=== PATIENT | female | born 1990 | race Caucasian/White ===

== ENCOUNTER 2019-02-26 16:53 | Emergency (ER) | payer MEDICAID, OTHER ==
[~2019-02-26] VITALS: Ht 152.4 cm; Wt 60.3 kg
[2019-02-26 17:10] VITALS: BP 103/51; PULSE 71; RESP 18; Ht 152.4 cm; Wt 60.3 kg
--- NOTE | 2019-02-26 17:44 | ERD ---
ER Documentation Chief Complaint Chief Complaint Sent by PCP for possible demise. HPI 28-year-old female is 12 weeks . She was seen at her OB today and they were unable to detect a heart rate on ultrasound patient's doctor sent her here to the ER. Patient has past medical history of ectopic and she had a UTI during this at her fifth week gestation. Patient denies any abdominal pain bleeding or vaginal discharge. ROS All systems reviewed and are negative except as per history of present illness. Allergies Allergies: Coded Allergies: No Known Allergy (Unverified , 02/26/19) FmHx Family History: No diabetes, No coronary disease, No other Physical Exam Vitals Vital Signs Date Temp Pulse Resp B/P (MAP) Pulse Ox O2 O2 Flow FiO2 Time Delivery Rate 02/26/19 99.2 71 18 103/51 98 17:10 (68) Physical Exam GENERAL: The patient is well-appearing, well-nourished, in no acute distress CHEST: Clear to auscultation bilaterally. There are no rales, wheezes or rhonchi. HEART: Regular rate and rhythm. No murmurs, clicks, rubs or gallops. ABDOMEN:Soft, nontender and nondistended. Good bowel sounds. No rebound or guarding. No gross peritonitis. No gross organomegaly or masses. No Cool sign or McBurney point tenderness. BACK: No midline or flank tenderness. Procedures/MDM ED course: Physical exam Trans-vaginal ultrasound Transabdominal ultrasound The patient was stable throughout the ED course. The patient and/or family informed of laboratory and diagnostic imaging results throughout the ED course. Diagnostic imaging: Read by radiologist Romy White, PROCEDURE: US OB. CLINICAL INDICATION: . No heart tones detected in the Clinic. LAST MENSTRUAL PERIOD: 11/24/2018 TECHNIQUE: Transabdominal and transvaginal views of the pelvis are available for review. COMPARISON: No prior studies are available for comparison. FINDINGS: [place]-rump length: 3.1 cm heart rate: No heart tones detected Ultrasound estimated gestational age: 10 weeks and 0 days Round myometrial lesions measuring 2.8 cm and 1.5 cm consistent with fibroids. Ovaries were not visualized. There is no free fluid. IMPRESSION: Approximately 10-week gestation without heart tones detected consistent with intrauterine demise. Medical decision making: Patient 28-year-old female presenting to the ED for confirmation for demise. Patient was seen at her [facility] today and they were unable to exact tones on ultrasound patient was sent here by her [facility] Dr. Talon Neff. The patient vitals were in normal range. The patient denies any vaginal bleeding or abdominal pain. Physical exam was unremarkable. Patient's ultrasound was consistent with a found in the OB office. heart tones were not detected. The patient remains hemodynamically stable. The patient was advised that if she experiences bleeding pain discharge dizziness lightheadedness or any discomfort to come back immediately. Patient was advised that she needs to contact her [facility] tomorrow and discuss the findings consistent with a nonviable . An attempt was made by myself to contact Dr. Neff but was unsuccessful. At this time the patient remains hemodynamically stable she has no bleeding or abdominal discomfort. The patient was advised that she should follow-up with him tomorrow. Patient was advised that if she does experience abdominal pain or vaginal bleeding to return ER immediately. The patient had no further questions upon discharge and is in agreement with the treatment plan. Discharge: At this time, patient is stable for discharge and outpatient management. I have instructed the patient to follow-up with his\her primary care physician in 1 to 2 days. I have discussed with the patient the possibility of needing to see a specialist for further work-up and imaging studies if symptoms persist. I have instructed the patient to promptly return to the ER for any new or worsening symptoms including increased pain, fever, nausea, vomiting, weakness or LOC. The patient and\or family expressed understanding of and agreement with this plan. All questions were answered. Home care instructions were provided. Disclaimer: Inadvertent spelling and grammatical errors are likely due to EHR\dictation software use and do not reflect on the overall quality of patient care. Also, please note that the electronic time recorded on the note does not necessarily reflect the actual time of the patient encounter. Departure Diagnosis: Primary Impression: Missed with demise before 20 completed weeksof gestation Condition: Stable Patient Instructions: Missed Miscarriage Referrals: TALON NEFF M.D. Additional Instructions: Experience abdominal pain vaginal bleeding or any discomfort return to the ER immediately PEDRO PABLO PROCTOR PA-C February 26, 2019 17:44
== END 2019-02-26 19:09 | disposition left against medical advice (07) ==
LOC: MERGE 16:53 → FTE 16:53
DX: O02.1 Missed abortion (principal)
CPT/HCPCS: 76801

== ENCOUNTER 2019-03-01 11:52 | Day surgery (SDC) | payer MEDICAID ==
[~2019-03-01] VITALS: Ht 152.4 cm; Wt 61.0 kg
[2019-03-01] VITALS (13 sets, daily range): BP systolic 93–103; BP diastolic 46–58; PULSE 63–88; RESP 12–18; Ht 152.4 cm; Wt 61.0 kg
[2019-03-01] MEDS ORDERED: FOLI-49 PO (12:25)
[2019-03-01] MEDS ORDERED: DESFLURANE 15 MIN ONE (12:40)
[2019-03-01] MEDS ORDERED: MIDAZOLAM 1 MG/ML 2 ML INJ ONE (12:48)
[2019-03-01] MEDS ORDERED: FENTAnyl 50 MCG/ML VIAL ONE (12:49)
[2019-03-01] MEDS ORDERED: CEFAZOLIN 1 GM INJ ONE (12:49)
[2019-03-01] MEDS ORDERED: LIDOCAINE 2% (SDV) 5 ML INJ ONE (12:49)
[2019-03-01] MEDS ORDERED: PROPOFOL 20 ML ONE (12:49)
[2019-03-01] MEDS ORDERED: SUCCINYLCHOLINE CHLORIDE 100 MG/5 ML SYG IV ONE (12:49)
--- NOTE | 2019-03-01 13:05 | PREAC ---
Date/Time of Note Date/Time of Note DATE: 03/01/19 TIME: 12:59 Anesthesia Eval and Record Evaluation Time Pre-Procedure Interview DATE: 03/01/19 TIME: 12:59 Age 28 Sex female NPO: 8 hrs Preoperative diagnosis demise, 12 weeks Planned procedure d&c suction Past Medical History Past Medical History: None Surgery & Anesthesia Issues No known issue Meds Anticoagulation: No Beta Jonna within 24 hr: No Reason Beta Jonna not given: Pt. not on B-Jonna Reported Medications Folic Acid* (Folic Acid*) 1 Mg Tablet, 1 MG PO DAILY, TAB 03/01/19 Meds reviewed: Yes Allergies Coded Allergies: No Known Allergy (Unverified , 03/01/19) Allergies Reviewed: Yes Labs/Studies Labs Reviewed: Reviewed by anesthesiologist test: N/A (12 weeks ) Pre-procedure Exam Airway: Adequate mouth opening, Adequate thyromental dist Mallampati: Mallampati I Teeth: Normal Lung: Normal Heart: Normal ASA Physical Status ASA physical status: 2 Emergency: None Planned Anesthetic General/MAC: ETT Planned Pain Management Parenteral pain med, Local by surgeon Pre-operative Attestations Prior to commencing anesthesia and surgery, the patient was re-evaluated, there was verification of: *The patient's identity *The results of appropriate recent lab work and preoperative vital signs *The above evaluation not changing prior to induction *Anesthetic plan, risk benefits, alternative and complications discussed with patient/family; questions answered; patient/family understands, accepts and wishes to proceed. PEDRO PABLO HILL Mar 01, 2019 13:05
[2019-03-01] MEDS ORDERED: ONDANSETRON 4 MG INJ ONE (13:35)
[2019-03-01] MEDS ORDERED: DEXAMETHASONE 4 MG/ML 5 ML INJ ONE (13:35)
[2019-03-01] MEDS ORDERED: FAMOTIDINE 20 MG INJ ONE (13:35)
[2019-03-01] MEDS ORDERED: METOCLOPRAMIDE 10 MG INJ ONE (13:35)
--- NOTE | 2019-03-01 13:51 | OPPN ---
Date/Time of Note Date/Time of Note DATE: 03/01/19 TIME: 13:50 Operative Report Preoperative Diagnosis demise at 6-7 wks Postoperative Diagnosis same Operation/Procedure Performed D&C&Suction Surgeon see signature line assistant manager of operations none Anesthesia: general Estimated blood loss: 10 - 50 ml's Transfusion Required none Specimen POC Grafts/Implants none Complications none CEZAR NEFF M.D. Mar 01, 2019 13:51
[2019-03-01] MEDS ORDERED: OXYCODONE/ACETAMINOPHEN (5/325) TAB PO PRN ×2 (14:00)
[2019-03-01] MEDS ORDERED: ONDANSETRON 4 MG INJ IV PRN (14:00)
[2019-03-01] MEDS ORDERED: FENTAnyl 50 MCG/ML VIAL IV PRN ×3 (14:00)
[2019-03-01] MEDS ORDERED: MEPERIDINE 25 MG INJ IV PRN (14:00)
[2019-03-01] MEDS ORDERED: ALBUTEROL 0.083% (NEB) 2.5 MG/3 ML AMP HHN PRN (14:00)
--- NOTE | 2019-03-01 14:15 | PAC ---
Date/Time of Note Date/Time of Note DATE: 03/01/19 TIME: 14:15 Post-Anesthesia Notes Post-Anesthesia Note Last documented vital signs Vital Signs Date Temp Pulse Resp B/P (MAP) Pulse Ox O2 O2 Flow FiO2 Time Delivery Rate 03/01/19 88 15 97/55 (69) 96 Room Air 14:05 03/01/19 98.3 14:04 03/01/19 6.0 14:00 Activity: WNL Respiratory function: WNL Cardiovascular function: WNL Mental status: Baseline Pain reasonably controlled: Yes Hydration appropriate: Yes Nausea/Vomiting absent: Yes PEDRO PABLO HILL Mar 01, 2019 14:15
--- NOTE | 2019-03-01 16:38 | OPR ---
DATE OF OPERATION: 03/01/2019 PREOPERATIVE DIAGNOSIS: Missed at 6 to 8 weeks. POSTOPERATIVE DIAGNOSIS: Missed at 6 to 8 weeks. PROCEDURE: D and C and suction. ATTENDING SURGEON: Talon Giang MD ANESTHESIOLOGIST: TYPE OF ANESTHESIA: General. COMPLICATIONS: None. ESTIMATED BLOOD LOSS: 10 to 30 mL. TECHNIQUE: The patient was taken to the operating room where general anesthesia was found to be adeq uate. The patient was placed in dorsal lithotomy position. After prep and drape, a weighted speculu m was placed inside the vaginal vault. Anterior lip of the cervix was grasped by single-tooth tenacu lum. Cervix was dilated by Espinal dilators. Suction size 8 was inserted. Intrauterine cavity was cook ctioned. Sharp curettage of endometrial cavity was done. Hemostasis was achieved. Suction was rein serted and all the instruments were removed. The patient tolerated the procedure well and was transf erred to recovery room in stable condition. There was no complication regarding this surgery. Dictated By: TALON LEIVA/JOSE Conf#: [id number] DID#: [id number]
== END 2019-03-01 16:35 | disposition home or self-care (01) ==
LOC: SUR 11:52 → SDS 11:52 → SUR 16:35
PROVIDERS: ATTEND Obstetrics & Gynecology
DX: O02.1 Missed abortion (principal)
CPT/HCPCS: 59820; 85025; 86900; 86901; 88305; J0690; J1100; J2250; J2405; J2765; J3010; Z7512; Z7610